=== PATIENT | female | born 1965 | race Caucasian/White ===

== ENCOUNTER → 2024-08-19 | Outpatient (CLI) | payer BC, SELFPAY ==
--- NOTE | 2024-08-19 15:30 | XR_ITS ---
Examination: Retroperitoneal ultrasound, complete Technique: Multiple high resolution grayscale images of the retroperitoneum obtained, including kidneys and bladder. Exam date and time:August 19, 2024 1550 hours INDICATIONS: Mild left hydronephrosis on renal sonogram April 12, 2024, history kidney stones on CT abdomen April 12, 2024 FINDINGS: Right kidney 10.0 x 5.0 x 5.6 cm renal cortex 1.2 cm Left kidney 10.0 x 5.1 x 4.2 cm cortex 1.3 cm Mild bilateral hydronephrosis Mild bilateral renal parenchymal scar formation No renal calculi No bladder mass or bladder calculi Bladder prevoid volume 461 cc postvoid volume 49 cc IMPRESSION: Bilateral renal cortical thinning Mild bilateral hydronephrosis Mild bilateral renal parenchymal scar formation
== END | disposition home or self-care (01) ==
LOC: CDIM 15:31
PROVIDERS: PCP Family Medicine; Referring Provider Internal Medicine; Visit Provider Internal Medicine
DX: N13.30 Unspecified hydronephrosis (principal); N28.89 Other specified disorders of kidney and ureter
CPT/HCPCS: 76770

== ENCOUNTER → 2024-10-02 | Outpatient (CLI) | payer BC, SELFPAY ==
[2024-10-02 18:11] LABS: Basophils # (Auto) 0.1 Thou/mm3 (0.0-0.2); Basophils % (Auto) 1 % (0-2.5); Eosinophils # (Auto) 0.2 Thou/mm3 (0.0-0.5); Eosinophils % (Auto) 3 % (0-10); Hematocrit 33.8 % (36.0-46.0); Hemoglobin 11.2 g/dL (12.0-16.0); Immature Granulocytes % (Auto) 0 % (0-0); Immature Granulocytes Auto 0.02 Thou/mm3 (0.00-0.00); Lymphocytes # (Auto) 1.7 Thou/mm3 (1.0-4.8); Lymphocytes % (Auto) 32 % (10-50); Mean Corpuscular HGB Conc 33.1 g/dl (31.0-37.0); Mean Corpuscular Hemoglobin 28.4 pg (25.0-35.0); Mean Corpuscular Volume 86 fL (80-100); Monocytes # (Auto) 0.5 Thou/mm3 (0.0-0.8); Monocytes % (Auto) 8 % (0-12); Neutrophils % (Auto) 56 % (37-80); Nucleated Red Blood Cell % 0 /100 WBC (0); Platelet Count 204 Thou/mm3 (140-440); RDW Standard Deviation 41.1 fL (36.4-46.3); Red Blood Count 3.94 Miln/mm3 (4.00-5.20); White Blood Count 5.5 Thou/mm3 (3.6-11.0)
[2024-10-02 18:19] LABS: Glucose Estimated Average 100 mg/dL (80-131); Hemoglobin A1C 5.1 % Hgb (4.8-6.0)
[2024-10-02 18:24] LABS: Follicle Stimulating Hormone 91.98 mIU/mL (See Note)
[2024-10-02 18:29] LABS: Alanine Aminotransferase 23 U/L (10-49); Albumin, Serum 4.1 gm/dL (3.5-5.0); Albumin/Globulin Ratio 1.6 (1.2-2.2); Alkaline Phosphatase 86 U/L (46-116); Anion Gap 9 (7-16); Aspartate Amino Transferase 14 U/L (0-34); BUN/Creatinine Ratio 18 Ratio (12-20); Beta HCG,Quantitative 4 mIU/mL (<5.0); Bilirubin,Total 0.4 mg/dL (0.3-1.2); Blood Urea Nitrogen 18 mg/dL (9-23); Calcium 9.3 mg/dL (8.3-10.6); Calcium (Corrected) 9.3 mg/dL (8.5-10.1); Carbon Dioxide 25.9 mMol/L (20.0-31.0); Chloride 105 mMol/L (98-107); Free T4 (Free Thyroxine) 0.98 ng/dL (0.89-1.76); Globulin 2.5 gm/dL (2.3-3.5); Glucose 80 mg/dL (74-106); Osmolality,Calculated 280 (275-295); Potassium 3.7 mMol/L (3.4-5.1); Sodium 140 mMol/L (136-145); Thyroid Stimulating Hormone 0.65 uIU/mL (0.55-4.78); Total Protein 6.6 gm/dL (5.7-8.2); eGFR > 60 See Note
[2024-10-15 06:39] LABS: 17-Hydroxyprogesterone* 36 ng/dL; DHEA Sulfate* 45 mcg/dL (8-188); Estrogen, Total, Serum* 175 pg/mL; Luteinizing Hormone* 64.3 mIU/mL; Progesterone,LC/MS* 0.2 ng/mL; Prolactin* 7.6 ng/mL; Testosterone, Free,Dialysis 1.5 pg/mL (0.1-6.4); Testosterone, Total, Dialysis 15 ng/dL (2-45)
== END | disposition home or self-care (01) ==
PROVIDERS: PCP Physician Assistant Medical; Referring Provider Physician Assistant Medical; Visit Provider Physician Assistant Medical
DX: N93.0 Postcoital and contact bleeding (principal); N95.1 Menopausal and female climacteric states
CPT/HCPCS: 36415; 80053; 82627; 82672; 83001; 83002; 83036; 83498; 84144; 84146; 84402; 84403; 84439; 84443; 84702; 85025

== ENCOUNTER → 2024-10-04 | Outpatient (CLI) | payer BC, SELFPAY ==
[2024-10-04 17:37] LABS: Collection Type, Urine Clean Catch; WBC,Urine 0 /hpf (0-5)
[2024-10-04 17:50] LABS: Basophils # (Auto) 0.1 Thou/mm3 (0.0-0.2); Basophils % (Auto) 1 % (0-2.5); Eosinophils # (Auto) 0.2 Thou/mm3 (0.0-0.5); Eosinophils % (Auto) 3 % (0-10); Hematocrit 34.1 % (36.0-46.0); Hemoglobin 11.4 g/dL (12.0-16.0); Immature Granulocytes % (Auto) 0 % (0-0); Immature Granulocytes Auto 0.01 Thou/mm3 (0.00-0.00); Lymphocytes # (Auto) 1.7 Thou/mm3 (1.0-4.8); Lymphocytes % (Auto) 29 % (10-50); Mean Corpuscular HGB Conc 33.4 g/dl (31.0-37.0); Mean Corpuscular Hemoglobin 28.6 pg (25.0-35.0); Mean Corpuscular Volume 86 fL (80-100); Monocytes # (Auto) 0.5 Thou/mm3 (0.0-0.8); Monocytes % (Auto) 8 % (0-12); Neutrophils # (Auto) 3.6 Thou/mm3 (1.8-7.7); Neutrophils % (Auto) 59 % (37-80); Nucleated Red Blood Cell % 0 /100 WBC (0); Platelet Count 210 Thou/mm3 (140-440); RDW Standard Deviation 41.2 fL (36.4-46.3); Red Blood Count 3.99 Miln/mm3 (4.00-5.20)
[2024-10-04 17:59] LABS: Bilirubin,Urine Negative (Negative); Blood,Urine Negative (Negative); Clarity,Urine Clear (Clear/Hazy); Color,Urine Colorless (Lt Yel-Yel); Glucose, Urine Negative (Negative); Ketones,Urine Negative (Negative); Leukocyte Esterase,Urine Negative (Negative); Nitrite,Urine Negative (Negative); Protein,Urine Negative (Neg - Trace); RBC,Urine < 1 /hpf (0-3); Specific Gravity,Urine 1.009 (1.001-1.035); Squamous Epithelial Cell,Urine 1 /hpf (0-5); Urobilinogen,Urine Negative mg/dL (0.0-1.0)
[2024-10-04 18:07] LABS: Creatinine,Random Urine 32 mg/dL (30-125); Protein Total, Random Urine < 6 mg/dL (1-14)
[2024-10-04 18:16] LABS: Anion Gap 9 (7-16); BUN/Creatinine Ratio 20 Ratio (12-20); Blood Urea Nitrogen 22 mg/dL (9-23); Calcium 9.2 mg/dL (8.3-10.6); Calcium (Corrected) 9.2 mg/dL (8.5-10.1); Carbon Dioxide 26.8 mMol/L (20.0-31.0); Chloride 105 mMol/L (98-107); Creatinine (Component) 1.1 mg/dL (0.6-1.3); Glucose 85 mg/dL (74-106); Osmolality,Calculated 283 (275-295); Phosphorous 3.5 mg/dL (2.4-5.1); Potassium 3.9 mMol/L (3.4-5.1); Sodium 141 mMol/L (136-145); eGFR 59 See Note
[2024-10-04 18:20] LABS: Vitamin D 25 Hydroxy Total 28.9 ng/mL (7.3-40.2)
== END | disposition home or self-care (01) ==
LOC: COPL 17:10
PROVIDERS: PCP Registered Nurse; Referring Provider Internal Medicine; Visit Provider Internal Medicine
DX: I12.9 Hypertensive chronic kidney disease with stage 1 through stage 4 chronic kidney disease, or unspecified chronic kidney disease (principal); N18.31 Chronic kidney disease, stage 3a; D68.61 Antiphospholipid syndrome; K51.90 Ulcerative colitis, unspecified, without complications
CPT/HCPCS: 36415; 80069; 81001; 82306; 82570; 84156; 85025

== ENCOUNTER → 2024-12-04 | Outpatient (CLI) | payer BC, SELFPAY ==
[2024-12-04 12:39] LABS: Misc Send Out* See Sep Rpt
[2024-12-04 13:01] LABS: Collection Type, Urine Clean Catch
[2024-12-04 13:31] LABS: Basophils # (Auto) 0.1 Thou/mm3 (0.0-0.2); Basophils % (Auto) 1 % (0-2.5); Eosinophils # (Auto) 0.2 Thou/mm3 (0.0-0.5); Eosinophils % (Auto) 4 % (0-10); Hematocrit 35.8 % (36.0-46.0); Hemoglobin 12.1 g/dL (12.0-16.0); Immature Granulocytes % (Auto) 0 % (0-0); Immature Granulocytes Auto 0.01 Thou/mm3 (0.00-0.00); Lymphocytes # (Auto) 1.3 Thou/mm3 (1.0-4.8); Lymphocytes % (Auto) 23 % (10-50); Mean Corpuscular HGB Conc 33.8 g/dl (31.0-37.0); Mean Corpuscular Hemoglobin 29.3 pg (25.0-35.0); Mean Corpuscular Volume 87 fL (80-100); Monocytes # (Auto) 0.6 Thou/mm3 (0.0-0.8); Monocytes % (Auto) 11 % (0-12); Neutrophils # (Auto) 3.4 Thou/mm3 (1.8-7.7); Neutrophils % (Auto) 62 % (37-80); Nucleated Red Blood Cell % 0 /100 WBC (0); Platelet Count 213 Thou/mm3 (140-440); RDW Standard Deviation 42.2 fL (36.4-46.3); Red Blood Count 4.13 Miln/mm3 (4.00-5.20); White Blood Count 5.5 Thou/mm3 (3.6-11.0)
[2024-12-04 13:47] LABS: Bacteria,Urine Rare; Bilirubin,Urine Negative (Negative); Blood,Urine Negative (Negative); Clarity,Urine Clear (Clear/Hazy); Color,Urine Yellow (Lt Yel-Yel); Glucose, Urine Negative (Negative); Ketones,Urine Negative (Negative); Leukocyte Esterase,Urine Negative (Negative); Nitrite,Urine Negative (Negative); Protein,Urine Trace (Neg - Trace); RBC,Urine 1 /hpf (0-3); Specific Gravity,Urine 1.023 (1.001-1.035); Squamous Epithelial Cell,Urine 5 /hpf (0-5); Urobilinogen,Urine Negative mg/dL (0.0-1.0); WBC,Urine 2 /hpf (0-5)
[2024-12-04 13:51] LABS: Alanine Aminotransferase 19 U/L (10-49); Albumin, Serum 4.2 gm/dL (3.5-5.0); Albumin/Globulin Ratio 1.5 (1.2-2.2); Alkaline Phosphatase 92 U/L (46-116); Anion Gap 8 (7-16); Aspartate Amino Transferase 17 U/L (0-34); BUN/Creatinine Ratio 23 Ratio (12-20); Bilirubin,Total 0.6 mg/dL (0.3-1.2); Blood Urea Nitrogen 25 mg/dL (9-23); C-Reactive Protein < 0.5 mg/dL (0.0-0.9); Calcium 8.9 mg/dL (8.3-10.6); Calcium (Corrected) 8.9 mg/dL (8.5-10.1); Carbon Dioxide 24.4 mMol/L (20.0-31.0); Chloride 109 mMol/L (98-107); Creatinine (Component) 1.1 mg/dL (0.6-1.3); Globulin 2.8 gm/dL (2.3-3.5); Glucose 84 mg/dL (74-106); Osmolality,Calculated 284 (275-295); Potassium 3.6 mMol/L (3.4-5.1); Sodium 141 mMol/L (136-145); eGFR 59 See Note
[2024-12-04 14:10] LABS: Sed Rate (ESR) 18 mm/hr (0-30)
[2024-12-11 07:06] LABS: PTT-LA Screen 36 seconds (< OR = 40); dRVVT Screen 35 seconds (< OR = 45)
[2024-12-11 15:34] LABS: Alpha-1-Globulin 0.3 g/dL (0.2-0.3); Alpha-2-Globulin 0.6 g/dL (0.5-0.9); Beta-1-Globulin 0.4 g/dL (0.4-0.6); Beta-2-globulin 0.3 g/dL (0.2-0.5); Cardiolipin Ab (IgA) <2.0 APL-U/mL; Cardiolipin Ab (IgG) <2.0 GPL-U/mL; Gamma Globulin 1.3 g/dL (0.8-1.7)
[2024-12-12 06:35] LABS: B2-Glycoprotein I Ab IgA <2.0 U/mL; B2-Glycoprotein I Ab IgG <2.0 U/mL; B2-Glycoprotein I Ab IgM 2.1 U/mL; Cardiolipin Ab (IgM) 2.6 MPL-U/mL; Complement Component C3* 94 mg/dL (83-193); Complement Component C4c* 24 mg/dL (15-57); DNA (ds) Antibody* 1 IU/mL; Protein, total, serum 6.9 g/dL (6.1-8.1)
== END | disposition home or self-care (01) ==
LOC: COPL 12:09
PROVIDERS: PCP Family Medicine; Referring Provider Internal Medicine; Visit Provider Internal Medicine
DX: E87.6 Hypokalemia (principal); M79.10 Myalgia, unspecified site; I12.9 Hypertensive chronic kidney disease with stage 1 through stage 4 chronic kidney disease, or unspecified chronic kidney disease; N18.31 Chronic kidney disease, stage 3a; N96 Recurrent pregnancy loss; R76.0 Raised antibody titer; K51.00 Ulcerative (chronic) pancolitis without complications
CPT/HCPCS: 36415; 80053; 81001; 84155; 84165; 85025; 85613; 85652; 85730; 86140; 86146; 86147; 86160; 86225; 86880; 87077; 87086; 87186

== ENCOUNTER → 2024-12-19 | Outpatient (BNVA) | payer BC, SELFPAY | END | disposition home or self-care (01) | PROVIDERS: Visit Provider Urology | DX: R31.9 Hematuria, unspecified (principal); R10.2 Pelvic and perineal pain; R33.9 Retention of urine, unspecified; R39.198 Other difficulties with micturition; I12.9 Hypertensive chronic kidney disease with stage 1 through stage 4 chronic kidney disease, or unspecified chronic kidney disease; N18.2 Chronic kidney disease, stage 2 (mild); E66.9 Obesity, unspecified; Z68.29 Body mass index [BMI] 29.0-29.9, adult | CPT/HCPCS: 81003; 99212; G0463 ==

== ENCOUNTER 2025-01-08 08:05 | Day surgery (SDC) | payer BC, SELFPAY ==
--- NOTE | 2025-01-07 12:40 | EKG_ITS ---
[facility] Test Date: 2025-01-07 Pat Name: CALVIN BUNCH Department: Room: - Gender: Female Adhesive Bonding Machine Operator: MARCO : 1965 Requested By: Anthony Reed Order Number: [id number] Reading MD: Anthony Reed Measurements Intervals [place] Rate: 78 P: 79 NM: 211 QRS: 3 QRSD: 108 T: 75 QT: 365 QTc: 418 Interpretive Statements SINUS RHYTHM WITH FIRST DEGREE AV BLOCK INCOMPLETE RIGHT BUNDLE BRANCH BLOCK [90+ ms QRS DURATION, TERMINAL R IN V1/V2, 40+ ms S IN I/aVL/V4/V5/V6] No previous ECG available for comparison /store/S0/[id number]
[2025-01-07 13:06] VITALS: BMI 28.1
[2025-01-07 14:08] LABS: Alanine Aminotransferase 21 U/L (10-49); Albumin, Serum 4.2 gm/dL (3.5-5.0); Albumin/Globulin Ratio 1.8 (1.2-2.2); Alkaline Phosphatase 102 U/L (46-116); Anion Gap 9 (7-16); Aspartate Amino Transferase 20 U/L (0-34); BUN/Creatinine Ratio 21 Ratio (12-20); Bilirubin,Total 0.3 mg/dL (0.3-1.2); Blood Urea Nitrogen 23 mg/dL (9-23); Calcium 8.7 mg/dL (8.3-10.6); Calcium (Corrected) 8.7 mg/dL (8.5-10.1); Carbon Dioxide 25.9 mMol/L (20.0-31.0); Chloride 109 mMol/L (98-107); Creatinine (Component) 1.1 mg/dL (0.6-1.3); Estimated Creatinine Clearance 57.8 mL/min (>60); Globulin 2.4 gm/dL (2.3-3.5); Glucose 123 mg/dL (74-106); Osmolality,Calculated 291 (275-295); Potassium 3.4 mMol/L (3.4-5.1); Sodium 144 mMol/L (136-145); Total Protein 6.6 gm/dL (5.7-8.2); eGFR 59 See Note
[2025-01-08] VITALS (9 sets, daily range): BP systolic 128–175; BP diastolic 75–93; PULSE 15–76; RESP 12–16; TEMP 36.6–36.8; O2SAT 95–100; BMI 28.8
[2025-01-08] MEDS: RINGERS LACTATED 1000 ML 1,000 ML 20 ML IV (09:53)
[2025-01-08] MEDS: SCOPOLAMINE 1 MG TDSY TOP (09:53)
--- NOTE | 2025-01-08 10:43 | PD.SUROPNT ---
Date of Procedure 01/08/25 Pre Op Diagnosis Chronic pelvic pain syndrome, difficulty in urinating, Post Op Diagnosis Same plus severe urethral stenosis, interstitial cystitis, Procedure Cystoscopic examination, urethral dilation [place] dilation for diagnostic and therapeutic purposes, biopsy and fulguration Findings Severe urethral stenosis, interstitial cystitis Procedure Description Indication for procedure this is a 59-year-old female she is seen in urology office she has chronic pelvic pain syndrome with difficulty in urinating she was recommended above procedure procedure and complications were discussed with the patient in great detail informed consent is obtained Patient was brought to the operating room in a satisfactory condition after appropriate premedication she was appropriately identified by surgeon and operating room staff, site scope and indications of the procedure were reconfirmed with the patient general anesthesia was given uneventfully patient was positioned in dorsolithotomy position parts were prepped and draped in the usual sterile fashion The patient received 160 mg Gentamicin IM pre-op prophylaxis. .. Local anesthetic was placed in the urethra. Cystoscopy was then performed. The urethra had no intrinsic lesions. Examination of the bladder revealed no evidence of cancerous lesions, papillary or polyp type, lesions or stones. Both ureters were putting out clear urine. Bladder was filled with the 400 cc of water drained cystoscopy was done again there was satellite hemorrhages indicating interstitial cystitis biopsy was obtained fulguration was carried out rule out carcinoma in situ, the urethra had mid urethral stenosis and the urethra was dilated up to 30Fr with dilators. The bladder was completely drained and the scope was removed. The patient tolerated the procedure well. Post-op instructions were given. The patient is to call the office should any problems occur. Follow-up appointment in urology office in 2 weeks Anesthesia GETA Pathology / specimen Other (Bladder biopsy) Estimated Blood Loss 0.5 Condition Stable Disposition PACU Surgeon Sayda Prater MD Surgical Staff Operation Date: 01/08/25 10:00 <No data on this case meets the specified criteria>
--- NOTE | 2025-01-08 10:48 | SUR.PHASEI ---
pt received from OR in recovery bay 2. pt obtunded, breathing unlabored on oxymask 8l, oral airway in place. v/s stable. report received from Santo HERNANDEZ and Ramin PARRY.
--- NOTE | 2025-01-08 11:11 | SUR.PHASEI ---
pt able to tolerate oral fluids without difficulty swallowing or nausea/vomiting.
--- NOTE | 2025-01-08 12:40 | SUR.PHASEII ---
pt awake and alert, breathing unlabored on room air. v/s stable. pt able to ambulate to wheelchair with steady gait. d/c instructions given with Rishi in room, all questions answered. pt d/c via wheelchair with all belongings.
== END 2025-01-08 12:40 | disposition home or self-care (01) ==
PROVIDERS: Anesthesiology; PCP Family Medicine; Referring Provider Urology; Visit Provider Urology
PROC: 0T7B8ZZ Dilation of Bladder, Via Natural or Artificial Opening Endoscopic (ICD-10-PCS; CPT 52260; principal; 2025-01-08 09:45)
DX: N30.10 Interstitial cystitis (chronic) without hematuria (principal); G89.4 Chronic pain syndrome; Z01.810 Encounter for preprocedural cardiovascular examination
CPT/HCPCS: 52260; 36415; 80053; 93005; A4217; A4649; J1100; J1580; J2250; J2371; J2405; J2704; J2765; J3010; J3490; J7120; A9270

== ENCOUNTER 2025-01-13 07:03 | Emergency (ER) | payer BC, SELFPAY ==
[2025-01-13 07:06] VITALS: BMI 27.9
[2025-01-13 07:12] VITALS: BP 153/86; PULSE 90; RESP 16; TEMP 36.6; O2SAT 97; BMI 27.9
--- NOTE | 2025-01-13 07:17 | XR_ITS ---
Examination: CT abdomen and pelvis without contrast. Coronal 3-D reconstructions. Sagittal 2-D reconstructions. Date and time of exam:January 13, 2025 0737 hours INDICATIONS: Status post cystoscopy 4 days ago with pelvic pain and bleeding CTDI: vol (mGy): 8.5 DLP: (mGycm): 430 Technique: Axial images of the abdomen have been obtained, 3 mm slice thickness Intravenous contrast material has not been administered. Low dose protocols were performed. One or more of the following dose reduction techniques were used; automated exposure control, adjustment of the mA and/or KV according to patient size, use of iterative reconstruction technique. Findings: Or splenic lesions No gallstones No pancreatic mass Minimal bilateral hydronephrosis No renal or ureteral calculi No periappendiceal inflammatory change No pelvic mass Minimal thickening of the urinary bladder wall Intact osseous structures IMPRESSION: Minimal bilateral hydronephrosis, consider urinary tract infection No ureteral calculi Minimal thickening of the urinary bladder wall, consider cystitis
[2025-01-13] MEDS: HYDROcodone/APAP 5/325 TABLET 1 TAB PO (07:50)
[2025-01-13 08:13] LABS: Collection Type, Urine Clean Catch; Squamous Epithelial Cell,Urine 0 /hpf (0-5); WBC,Urine 0 /hpf (0-5)
[2025-01-13 08:18] LABS: Basophils # (Auto) 0.1 Thou/mm3 (0.0-0.2); Basophils % (Auto) 1 % (0-2.5); Eosinophils # (Auto) 0.3 Thou/mm3 (0.0-0.5); Eosinophils % (Auto) 6 % (0-10); Hematocrit 36.6 % (36.0-46.0); Hemoglobin 12.5 g/dL (12.0-16.0); Immature Granulocytes % (Auto) 0 % (0-0); Immature Granulocytes Auto 0.01 Thou/mm3 (0.00-0.00); Lymphocytes # (Auto) 1.7 Thou/mm3 (1.0-4.8); Lymphocytes % (Auto) 31 % (10-50); Mean Corpuscular HGB Conc 34.2 g/dl (31.0-37.0); Mean Corpuscular Hemoglobin 29.1 pg (25.0-35.0); Mean Corpuscular Volume 85 fL (80-100); Monocytes # (Auto) 0.6 Thou/mm3 (0.0-0.8); Monocytes % (Auto) 11 % (0-12); Neutrophils # (Auto) 2.7 Thou/mm3 (1.8-7.7); Neutrophils % (Auto) 51 % (37-80); Nucleated Red Blood Cell % 0 /100 WBC (0); Platelet Count 191 Thou/mm3 (140-440); RDW Standard Deviation 42.2 fL (36.4-46.3); White Blood Count 5.3 Thou/mm3 (3.6-11.0)
[2025-01-13 08:27] LABS: Bilirubin,Urine Negative (Negative); Blood,Urine 3+ (Negative); Color,Urine Dark-Brown (Lt Yel-Yel); Culture Indicated,Urine Not Indicated; Glucose, Urine Negative (Negative); Ketones,Urine Negative (Negative); Nitrite,Urine Negative (Negative); Protein,Urine 1+ (Neg - Trace); RBC,Urine 243696 /hpf (0-3); Specific Gravity,Urine 1.022 (1.001-1.035); Urobilinogen,Urine Negative mg/dL (0.0-1.0)
[2025-01-13 08:33] LABS: Alanine Aminotransferase 19 U/L (10-49); Albumin, Serum 4.2 gm/dL (3.5-5.0); Albumin/Globulin Ratio 1.6 (1.2-2.2); Alkaline Phosphatase 91 U/L (46-116); Anion Gap 8 (7-16); Aspartate Amino Transferase 16 U/L (0-34); BUN/Creatinine Ratio 17 Ratio (12-20); Bilirubin,Total 0.5 mg/dL (0.3-1.2); Blood Urea Nitrogen 20 mg/dL (9-23); Calcium 8.8 mg/dL (8.3-10.6); Calcium (Corrected) 8.8 mg/dL (8.5-10.1); Carbon Dioxide 30.3 mMol/L (20.0-31.0); Chloride 105 mMol/L (98-107); Creatinine (Component) 1.2 mg/dL (0.6-1.3); Estimated Creatinine Clearance 52.8 mL/min (>60); Globulin 2.6 gm/dL (2.3-3.5); Glucose 88 mg/dL (74-106); Lipase 44 U/L (12-53); Osmolality,Calculated 286 (275-295); Potassium 3.6 mMol/L (3.4-5.1); Sodium 143 mMol/L (136-145); Total Protein 6.8 gm/dL (5.7-8.2); eGFR 53 See Note
[2025-01-13 08:49] LABS: Clarity,Urine Bloody (Clear/Hazy); Leukocyte Esterase,Urine Negative (Negative)
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
[2025-01-13] MEDS: KETOROLAC INJ 30 MG/ML VIAL IM (09:52)
== END 2025-01-13 09:57 | disposition home or self-care (01) ==
PROVIDERS: Nurse Practitioner Primary Care; Emergency Provider Emergency Medicine; PCP Family Medicine
DX: R31.9 Hematuria, unspecified (principal); R10.2 Pelvic and perineal pain
CPT/HCPCS: 36415; 74176; 80053; 81001; 83690; 85025; 96372; 99284; J1885; A9270

== ENCOUNTER → 2025-01-20 | Outpatient (CLI) | payer BC, SELFPAY ==
--- NOTE | 2025-01-20 11:02 | EKG_ITS ---
[facility] Test Date: 2025-01-20 Pat Name: CALVIN BUNCH Department: Room: - Gender: Female Residential Case Manager: MARCO : 1965 Requested By: . Other Order Number: [id number] Reading MD: . Other Measurements Intervals [place] Rate: 78 P: 76 DE: 191 QRS: 25 QRSD: 105 T: 78 QT: 368 QTc: 420 Interpretive Statements SINUS RHYTHM INCOMPLETE RIGHT BUNDLE BRANCH BLOCK [90+ ms QRS DURATION, TERMINAL R IN V1/V2, 40+ ms S IN I/aVL/V4/V5/V6] SEPTAL MYOCARDIAL INFARCTION , PROBABLY OLD [40+ ms Q WAVE IN V1/V2] Compared to ECG 01/07/2025 13:33:48 Myocardial infarct finding now present First degree AV block no longer present /store/S0/[id number]/[id number].pdf
[2025-01-20 11:33] LABS: Alanine Aminotransferase 22 U/L (10-49); Albumin, Serum 4.2 gm/dL (3.5-5.0); Albumin/Globulin Ratio 1.6 (1.2-2.2); Alkaline Phosphatase 105 U/L (46-116); Anion Gap 10 (7-16); BUN/Creatinine Ratio 14 Ratio (12-20); Bilirubin,Total 0.4 mg/dL (0.3-1.2); Blood Urea Nitrogen 27 mg/dL (9-23); Calcium 9.2 mg/dL (8.3-10.6); Calcium (Corrected) 9.2 mg/dL (8.5-10.1); Carbon Dioxide 23.2 mMol/L (20.0-31.0); Chloride 106 mMol/L (98-107); Creatinine (Component) 1.9 mg/dL (0.6-1.3); Globulin 2.6 gm/dL (2.3-3.5); Glucose 65 mg/dL (74-106); Osmolality,Calculated 280 (275-295); Potassium 3.8 mMol/L (3.4-5.1); Sodium 139 mMol/L (136-145); Total Protein 6.8 gm/dL (5.7-8.2); eGFR 30 See Note
== END | disposition home or self-care (01) ==
PROVIDERS: PCP Family Medicine
DX: Z01.818 Encounter for other preprocedural examination (principal)
CPT/HCPCS: 36415; 80053; 93005

== ENCOUNTER → 2025-01-24 | Outpatient (BNVA) | payer BC, SELFPAY | END | disposition home or self-care (01) | PROVIDERS: PCP Family Medicine; Referring Provider Family Medicine; Visit Provider Urology | DX: G89.4 Chronic pain syndrome (principal); R10.2 Pelvic and perineal pain; I12.9 Hypertensive chronic kidney disease with stage 1 through stage 4 chronic kidney disease, or unspecified chronic kidney disease; Z87.440 Personal history of urinary (tract) infections; N18.30 Chronic kidney disease, stage 3 unspecified | CPT/HCPCS: 81003; 99212; G0463 ==

== ENCOUNTER → 2025-02-28 | Outpatient (CLI) | payer BC, SELFPAY ==
--- NOTE | 2025-02-28 15:57 | XR_ITS ---
Examination: Bilateral hands, 3 views. Technique: AP, Oblique, Lateral each hand total 6 views INDICATIONS: Hand pain 3 years Date and time of exam: February 28, 2025 1602 hours Findings: Mild juxta-articular bone demineralization Bilateral moderate osteoarthritis first carpal metacarpal joints No erosive or other significant arthritic change. No acute fractures No foreign bodies IMPRESSION: Bilateral moderate osteoarthritis first carpometacarpal joints. No erosive or other significant arthritic change
--- NOTE | 2025-02-28 15:57 | XR_ITS ---
Examination: Soft tissue lateral neck single view TECHNIQUE: Lateral soft tissue neck single view Date and time: February 28, 2025 1602 hours INDICATIONS: Sudden onset neck pain beginning 3 weeks ago. FINDINGS: Minimal retrolisthesis C5 on C4 1 mm Moderate degenerative disc disease C5-C6 Mild cervical spondylosis. No cervical fracture Intact odontoid IMPRESSION: Moderate degenerative disc disease C5-C6
[2025-02-28 17:34] LABS: Basophils # (Auto) 0.1 Thou/mm3 (0.0-0.2); Basophils % (Auto) 1 % (0-2.5); Eosinophils # (Auto) 0.3 Thou/mm3 (0.0-0.5); Eosinophils % (Auto) 4 % (0-10); Hematocrit 38.5 % (36.0-46.0); Hemoglobin 12.3 g/dL (12.0-16.0); Immature Granulocytes Auto 0.02 Thou/mm3 (0.00-0.00); Lymphocytes # (Auto) 2.4 Thou/mm3 (1.0-4.8); Lymphocytes % (Auto) 32 % (10-50); Mean Corpuscular HGB Conc 31.9 g/dl (31.0-37.0); Mean Corpuscular Hemoglobin 28.8 pg (25.0-35.0); Mean Corpuscular Volume 90 fL (80-100); Monocytes # (Auto) 0.9 Thou/mm3 (0.0-0.8); Monocytes % (Auto) 12 % (0-12); Neutrophils # (Auto) 3.9 Thou/mm3 (1.8-7.7); Neutrophils % (Auto) 51 % (37-80); Nucleated Red Blood Cell # 0.00 Thou/mm3 (0.00-0.00); Nucleated Red Blood Cell % 0 /100 WBC (0); Platelet Count 209 Thou/mm3 (140-440); RDW Standard Deviation 45.0 fL (36.4-46.3); Red Blood Count 4.27 Miln/mm3 (4.00-5.20); White Blood Count 7.7 Thou/mm3 (3.6-11.0)
[2025-02-28 17:47] LABS: Alanine Aminotransferase 28 U/L (10-49); Albumin, Serum 4.4 gm/dL (3.5-5.0); Anion Gap 10 (7-16); Aspartate Amino Transferase 27 U/L (0-34); BUN/Creatinine Ratio 25 Ratio (12-20); Bilirubin,Total 0.3 mg/dL (0.3-1.2); Blood Urea Nitrogen 30 mg/dL (9-23); Calcium 9.0 mg/dL (8.3-10.6); Calcium (Corrected) 9.0 mg/dL (8.5-10.1); Carbon Dioxide 22.4 mMol/L (20.0-31.0); Chloride 109 mMol/L (98-107); Creatinine (Component) 1.2 mg/dL (0.6-1.3); Glucose 79 mg/dL (74-106); Osmolality,Calculated 286 (275-295); Potassium 4.0 mMol/L (3.4-5.1); Sodium 141 mMol/L (136-145); Total Protein 7.3 gm/dL (5.7-8.2); eGFR 53 See Note
[2025-02-28 17:48] LABS: Albumin/Globulin Ratio 1.5 (1.2-2.2); Alkaline Phosphatase 159 U/L (46-116); C-Reactive Protein < 0.5 mg/dL (0.0-0.9); Globulin 2.9 gm/dL (2.3-3.5)
[2025-02-28 18:22] LABS: Sed Rate (ESR) 24 mm/hr (0-30)
== END | disposition home or self-care (01) ==
LOC: CDIM 15:48 → COPL 16:20
DX: M50.322 Other cervical disc degeneration at C5-C6 level (principal); M18.0 Bilateral primary osteoarthritis of first carpometacarpal joints; E87.6 Hypokalemia; K51.00 Ulcerative (chronic) pancolitis without complications; M79.10 Myalgia, unspecified site; I12.9 Hypertensive chronic kidney disease with stage 1 through stage 4 chronic kidney disease, or unspecified chronic kidney disease; N18.31 Chronic kidney disease, stage 3a; N30.00 Acute cystitis without hematuria; N96 Recurrent pregnancy loss; R76.0 Raised antibody titer
CPT/HCPCS: 36415; 70360; 73130; 80053; 85025; 85652; 86140

== ENCOUNTER → 2025-05-05 | Outpatient (BNVA) | payer BC, SELFPAY | END | disposition home or self-care (01) | PROVIDERS: PCP Family Medicine; Referring Provider Family Medicine; Visit Provider Urology | DX: G89.4 Chronic pain syndrome (principal); Z98.890 Other specified postprocedural states; I12.9 Hypertensive chronic kidney disease with stage 1 through stage 4 chronic kidney disease, or unspecified chronic kidney disease; N18.2 Chronic kidney disease, stage 2 (mild); F41.9 Anxiety disorder, unspecified; K51.90 Ulcerative colitis, unspecified, without complications; Z87.440 Personal history of urinary (tract) infections; E66.9 Obesity, unspecified; Z68.29 Body mass index [BMI] 29.0-29.9, adult | CPT/HCPCS: 81003; 99212; G0463 ==

== ENCOUNTER → 2025-05-06 | Outpatient (CLI) | payer BC, SELFPAY ==
[2025-05-06 11:33] LABS: Basophils # (Auto) 0.1 Thou/mm3 (0.0-0.2); Basophils % (Auto) 1 % (0-2.5); Eosinophils # (Auto) 0.2 Thou/mm3 (0.0-0.5); Eosinophils % (Auto) 5 % (0-10); Hematocrit 38.4 % (36.0-46.0); Hemoglobin 12.6 g/dL (12.0-16.0); Immature Granulocytes Auto 0.01 Thou/mm3 (0.00-0.00); Lymphocytes # (Auto) 1.9 Thou/mm3 (1.0-4.8); Lymphocytes % (Auto) 37 % (10-50); Mean Corpuscular HGB Conc 32.8 g/dl (31.0-37.0); Mean Corpuscular Hemoglobin 29.4 pg (25.0-35.0); Mean Corpuscular Volume 90 fL (80-100); Monocytes # (Auto) 0.5 Thou/mm3 (0.0-0.8); Monocytes % (Auto) 10 % (0-12); Neutrophils # (Auto) 2.4 Thou/mm3 (1.8-7.7); Neutrophils % (Auto) 47 % (37-80); Nucleated Red Blood Cell # 0.00 Thou/mm3 (0.00-0.00); Nucleated Red Blood Cell % 0 /100 WBC (0); Platelet Count 190 Thou/mm3 (140-440); RDW Standard Deviation 43.8 fL (36.4-46.3); Red Blood Count 4.29 Miln/mm3 (4.00-5.20); White Blood Count 5.1 Thou/mm3 (3.6-11.0)
[2025-05-06 11:46] LABS: Glucose Estimated Average 103 mg/dL (80-131); Hemoglobin A1C 5.2 % Hgb (4.8-6.0)
[2025-05-06 11:51] LABS: Parathyroid Hormone Intact 42.1 pg/ml (18.5-88.0)
[2025-05-06 11:57] LABS: Alanine Aminotransferase 26 U/L (10-49); Albumin, Serum 4.3 gm/dL (3.5-5.0); Albumin/Globulin Ratio 1.7 (1.2-2.2); Alkaline Phosphatase 123 U/L (46-116); Anion Gap 8 (7-16); Aspartate Amino Transferase 20 U/L (0-34); BUN/Creatinine Ratio 17 Ratio (12-20); Bilirubin,Total 0.4 mg/dL (0.3-1.2); Blood Urea Nitrogen 19 mg/dL (9-23); Calcium 9.9 mg/dL (8.3-10.6); Calcium (Corrected) 9.9 mg/dL (8.5-10.1); Carbon Dioxide 32.0 mMol/L (20.0-31.0); Cardiac Risk Estimate 2.1 RATIO (3.7-5.6); Chloride 102 mMol/L (98-107); Cholesterol 184 mg/dL (132-200); Creatinine (Component) 1.1 mg/dL (0.6-1.3); Globulin 2.6 gm/dL (2.3-3.5); Glucose 84 mg/dL (74-106); HDL Cholesterol 87 mg/dL (40-60); LDL Cholesterol,Calculated 83 mg/dL (0-130); Osmolality,Calculated 284 (275-295); Potassium 4.7 mMol/L (3.4-5.1); Sodium 142 mMol/L (136-145); Thyroid Stimulating Hormone 1.62 uIU/mL (0.55-4.78); Total Protein 6.9 gm/dL (5.7-8.2); Triglycerides 71 mg/dL (30-150); eGFR 59 See Note
[2025-05-06 11:58] LABS: Ferritin 25 ng/mL (7.3-270.7); Iron 85 mcg/dL (50-170); Percent Iron Saturation 22 % (20-55); Total Iron Binding Capacity 370 mcg/dL (250-425); Unsaturated Iron Binding 285 (225-295)
[2025-05-14 07:04] LABS: Vitamin D,1,25 (OH)2,Total 14 pg/mL (18-72); Vitamin D2, 1,25 (OH)2 <8 pg/mL; Vitamin D3, 1,25 (OH)2 14 pg/mL
[2025-05-14 07:09] LABS: Vitamin B1 (Thiamine)* 18 nmol/L (8-30); Vitamin B6, Plasma* 50.0 ng/mL (2.1-21.7)
== END | disposition home or self-care (01) ==
PROVIDERS: PCP Family Medicine; Referring Provider Student in an Organized Health Care Education/Training Program; Visit Provider Student in an Organized Health Care Education/Training Program
DX: K91.2 Postsurgical malabsorption, not elsewhere classified (principal); Z90.3 Acquired absence of stomach [part of]; K51.919 Ulcerative colitis, unspecified with unspecified complications; E87.6 Hypokalemia
CPT/HCPCS: 36415; 80053; 80061; 82652; 82728; 83036; 83540; 83550; 83970; 84207; 84425; 84443; 85025

== ENCOUNTER 2025-06-19 09:13 | Emergency (ER) | payer BC, SELFPAY ==
--- NOTE | 2025-06-19 09:19 | EKG_ITS ---
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
[2025-06-19 09:20] VITALS: PULSE 88; O2SAT 99; BMI 29.8
[2025-06-19 09:23] VITALS: BP 135/85; PULSE 70; RESP 17; TEMP 36.5; O2SAT 100
--- NOTE | 2025-06-19 09:25 | XR_ITS ---
CLINICAL INDICATION: Cough and chills TECHNIQUE: XR chest 1V portable Exam date and time: 06/19/2025 at 9:57 a.m. COMPARISON: 01/31/2023 chest radiograph FINDINGS: The cardiomediastinal silhouette is within normal limits. No airspace opacities suggestive of pneumonia. No mass detected. No pleural effusion or pneumothorax. No acute osseous abnormality detected. IMPRESSION: No radiographic evidence for acute cardiopulmonary abnormality. No significant interval change since the comparison study. - This report was generated utilizing speech recognition software. -
[2025-06-19 09:28] VITALS: PULSE 77
[2025-06-19] MEDS: SODIUM CHLORIDE 0.9% 1000 ML 1,000 ML 999 ML IV (09:37)
[2025-06-19 09:59] LABS: Basophils # (Auto) 0.1 Thou/mm3 (0.0-0.2); Basophils % (Auto) 2 % (0-2.5); Eosinophils # (Auto) 0.2 Thou/mm3 (0.0-0.5); Eosinophils % (Auto) 5 % (0-10); Hematocrit 33.2 % (36.0-46.0); Hemoglobin 10.7 g/dL (12.0-16.0); Immature Granulocytes Auto 0.01 Thou/mm3 (0.00-0.00); Lymphocytes # (Auto) 1.0 Thou/mm3 (1.0-4.8); Lymphocytes % (Auto) 26 % (10-50); Mean Corpuscular HGB Conc 32.2 g/dl (31.0-37.0); Mean Corpuscular Hemoglobin 28.4 pg (25.0-35.0); Mean Corpuscular Volume 88 fL (80-100); Monocytes # (Auto) 0.4 Thou/mm3 (0.0-0.8); Monocytes % (Auto) 11 % (0-12); Neutrophils # (Auto) 2.2 Thou/mm3 (1.8-7.7); Neutrophils % (Auto) 57 % (37-80); Nucleated Red Blood Cell # 0.00 Thou/mm3 (0.00-0.00); Nucleated Red Blood Cell % 0 /100 WBC (0); Platelet Count 135 Thou/mm3 (140-440); RDW Standard Deviation 41.7 fL (36.4-46.3); Red Blood Count 3.77 Miln/mm3 (4.00-5.20); White Blood Count 3.9 Thou/mm3 (3.6-11.0)
[2025-06-19 10:03] LABS: Alanine Aminotransferase 17 U/L (10-49); Albumin, Serum 4.4 gm/dL (3.5-5.0); Albumin/Globulin Ratio 2.1 (1.2-2.2); Alkaline Phosphatase 100 U/L (46-116); Anion Gap 7 (7-16); Aspartate Amino Transferase 19 U/L (0-34); BUN/Creatinine Ratio 19 Ratio (12-20); Bilirubin,Total 0.4 mg/dL (0.3-1.2); Blood Urea Nitrogen 23 mg/dL (9-23); Calcium 9.2 mg/dL (8.3-10.6); Calcium (Corrected) 9.2 mg/dL (8.5-10.1); Carbon Dioxide 27.9 mMol/L (20.0-31.0); Chloride 106 mMol/L (98-107); Creatinine (Component) 1.2 mg/dL (0.6-1.3); Estimated Creatinine Clearance 52.6 mL/min (>60); Globulin 2.1 gm/dL (2.3-3.5); Glucose 93 mg/dL (74-106); Osmolality,Calculated 284 (275-295); Potassium 4.1 mMol/L (3.4-5.1); Sodium 141 mMol/L (136-145); Total Protein 6.5 gm/dL (5.7-8.2); Troponin I < 0.002 ng/mL (0.0-0.045); eGFR 53 See Note
[2025-06-19 11:17] LABS: INR 1.0 (0.9-1.3); Partial Thromboplastin Time 23.7 Seconds (22.0-36.0); Prothrombin Time 11.0 Seconds (9.0-12.2)
[2025-06-19 11:30] LABS: Collection Type, Urine Clean Catch
--- NOTE | 2025-06-19 11:45 | PD.EDSYNC ---
ED Syncope RME/HPI General Chief Complaint: Syncope / Near Syncope Stated Complaint: NEAR SYNCOPE Time Seen by Provider: 06/19/25 09:24 Arrival date/time: 06/19/25 09:13 Limitations: no limitations RME / HPI RME / HPI narrative: 59 year old female with history of hypertension presents to the ED BIBA from home for near syncopal episode today. Patient states she was working when she suddenly ill and near syncope and able to sit herself down. Per medics, witnesses on scene stated they had an emergency kit and noted patient to be bradycardic. State the patient was given Atropine. On scene, the patient was awake and vital signs within normal limits. EMS administered no medications. No LOC. No headache, no visual changes, no focal weakness. No other associated symptoms or complaints. Related Data Home Medications ?Medication ?Instructions ?Recorded ?Confirmed albuterol sulfate 90 mcg/actuation 2 puff inhalation Q6HR PRN 08/09/16 05/05/25 aerosol inhaler (Proventil HFA) WHEEZING #0 inhalations duloxetine 60 mg capsule,delayed 60 mg PO QDAY 12/19/24 05/05/25 release (Cymbalta) valsartan 160 mg tablet 160 mg PO QDAY 12/19/24 05/05/25 ascorbic acid (vitamin C) 1,000 mg 1 g PO QDAY 01/07/25 05/05/25 tablet (C-1000) azelastine 137 mcg (0.1 %) nasal 1 spray intranasal BID 01/07/25 05/05/25 spray clonidine HCl 0.1 mg tablet 0.1 mg PO HS 01/07/25 05/05/25 cranberry 500 mg capsule 500 mg PO QDAY 01/07/25 05/05/25 duloxetine 30 mg capsule,delayed 30 mg PO DAILY 01/07/25 05/05/25 release fluticasone propionate 50 1 spray intranasal QDAY PRN 01/07/25 05/05/25 mcg/actuation nasal allergy symptoms spray,suspension (24 Hour Allergy Relief) loratadine 10 mg tablet 10 mg PO DAILY PRN allergy symptoms 01/07/25 05/05/25 potassium chloride 10 mEq 20 meq PO DAILY 01/07/25 05/05/25 capsule,extended release vitamin B complex-vitamin C-folic 1 tab PO QDAY 01/07/25 05/05/25 acid 0.8 mg tablet (Ana-Pradeep) estradiol 0.01% (0.1 mg/gram) 2 g vaginal DIRECTED 05/05/25 05/05/25 vaginal cream (Estrace) Allergies Allergy/AdvReac Type Severity Reaction Status Date / Time No Known Allergies Allergy Verified 05/05/25 14:58 Review of Systems Review of Systems Systems Reviewed: All systems reviewed, normal except as documented Past Medical History Past Medical History NEUROLOGIC: Positive Neurological Disorders and Head Trauma (fell off sip line) CARDIAC: Positive Cardiac Disorders and Hypertension RESPIRATORY: Positive Asthma, Bronchitis and Pneumonia GASTROINTESTINAL: Positive Gastrointestinal Disorders, Colitis and Ulcerative Colitis GENITOURINARY: Positive Renal Disease MUSCULOSKELETAL: Positive Musculoskeletal Disorders, Arthritis and Degenerative Disk Disease ENT: Positive Head Trauma (fell off sip line) PSYCHO/SOCIAL: Positive Depression and Anxiety OTHER HISTORY: Positive Hospitalization and Chicken Pox Family History FAMILY HISTORY: Positive Family Psychiatric Problems, Family Cardiac Disorders, Family Cancer and Family Surgery Surgical History SURGICAL: Positive Gastric Bypass Surgery; Negative Open Heart Surgery Social History SMOKING STATUS: Never smoker ED Exam General Limitations: Present no limitations General appearance: Present alert and in no apparent distress Head Head exam: Present atraumatic Eye Eye exam: Present normal appearance, PERRL and EOMI ENT ENT exam: Present normal exam, normal oropharynx and mucous membranes moist Neck Neck exam: Present normal inspection, full ROM and trachea midline Chest Chest inspection: Present normal inspection and symmetric chest wall rise Respiratory Respiratory exam: Present normal lung sounds bilaterally Cardiovascular Cardiovascular exam: Present regular rate, normal rhythm and normal heart sounds Abdominal Exam Abdominal exam: Present soft and normal bowel sounds Extremities Exam Extremities exam: Present normal inspection and full ROM Back Exam Back exam: Present normal inspection and full ROM Neurological Exam Neurological exam: Present alert, oriented X3 and CN II-XII intact Psychiatric Psychiatric exam: Present normal affect and normal mood Skin Skin exam: Present warm, dry, intact and normal color Course Quality Measures none Orders Category Date Time Status Log Hauler NOW Care 06/19/25 09:25 Completed Continuous Pulse Oximetry NOW Care 06/19/25 09:25 Completed EKG (ED ONLY) *Do not use* NOW Care 06/19/25 09:19 Completed Insert IV NOW Care 06/19/25 09:25 Completed EKG (ED Only) Stat Exams 06/19/25 09:19 Ordered XR chest 1V portable Stat Exams 06/19/25 09:25 Completed CBC Stat Lab 06/19/25 09:33 Completed Comprehensive Metabolic Panel Stat Lab 06/19/25 09:33 Completed Partial Thromboplastin Time Stat Lab 06/19/25 10:30 Completed Prothrombin Time with INR Stat Lab 06/19/25 10:30 Completed Troponin I Stat Lab 06/19/25 09:33 Completed Urinalysis Stat Lab 06/19/25 11:23 Completed Sodium Chloride 0.9% 1000 ml [Ns] 1,000 ml Med 06/19/25 09:25 Discontinued IV 999 mls/hr Vital Signs Vital signs: Vital Signs Temperature 97.7 F 06/19/25 09:23 Pulse Rate 70 06/19/25 09:23 Respiratory Rate 17 06/19/25 09:23 Blood Pressure 135/85 H 06/19/25 09:23 Pulse Oximetry (%) 100 06/19/25 09:23 Oxygen Delivery Method Room Air 06/19/25 09:23 Pulse ox is 100% on room air which is adequate. Syncope MDM Narrative MDM Narrative:: Rosa Amaya am scribing for and in the presence of Dr. Moon. Patient data External records reviewed:: [facility] previous records and EMS form Clinical information provided by:: patient and EMS Social determinants that could affect healthcare access:: none Patient has the following chronic illnesses:: Hypertension How is presenting disease/condition affected by chronic disease/condition?: uneffected by Evaluation data The following diagnostics were reviewed and interpreted by me:: lab results, radiology exam(s) and EKG tracing(s) (EKG @ 09:23 AM. Normal sinus rhythm, rate 76, no STEMI. ) Lab and/or radiology exams considered but not ordered:: None Interpretation Summary: Ordering Physician: Aneudy Moon MD Date of Service: 06/19/25 Procedure(s): XR chest 1V portable Accession Number(s): [id number] cc: Aneudy Moon MD; Mary Mobley MD; Nathaniel Muller CLINICAL INDICATION: Cough and chills TECHNIQUE: XR chest 1V portable Exam date and time: 06/19/2025 at 9:57 a.m. COMPARISON: 01/31/2023 chest radiograph FINDINGS: The cardiomediastinal silhouette is within normal limits. No airspace opacities suggestive of pneumonia. No mass detected. No pleural effusion or pneumothorax. No acute osseous abnormality detected. IMPRESSION: No radiographic evidence for acute cardiopulmonary abnormality. No significant interval change since the comparison study. - This report was generated utilizing speech recognition software. - Dictated By: Nathaniel Muller DO Signed By: <Electronically signed by Nathaniel Muller DO in OV> 06/19/25 1010 Medications / Prescriptions Medications or Prescriptions considered but not ordered:: None Medication administrations:: Medication Administration History Discontinued Medications Sodium Chloride (Ns) 1,000 mls @ 999 mls/hr IV .Q1H1M ONE Stop: 06/19/25 10:25 Last Infusion: 06/19/25 10:38 Dose: Infused Documented By: Admin: 06/19/25 09:37 Dose: 999 mls/hr Documented By: VERONICA See above Consultations Consultation(s) initiated? (list below): No Diagnosis Syncope Differential Diagnosis: syncope due to orthostatic hypotension, vasovagal syncope and dehydration Most likely diagnosis given after review of the tests above:: Vasovagal syncope Admission Indicated Admission indicated?: not indicated Explain why admission is indicated or not indicated:: With no condition needing emergent intervention, there was no indication for admission. Admission Request Was there a request for admission?: No Disposition Plan Disposition Plan: Discharge Discharge Attestation Discharge Attestation: The patient and all family members were given an opportunity to ask questions and understood the discharge instructions. Discharge instructions specifically effects, indications for sooner follow up or return to the emergency department, and the expected course of current diagnosis. Patient condition: Stable Discharge Plan Plan Patient Disposition: HOME (Self Care) Patient condition on transfer: Stable Prescriptions/Referrals Prescriptions/Med Rec: No Action valsartan 160 mg tablet 160 mg PO QDAY duloxetine [Cymbalta] 60 mg capsule,delayed release(DR/EC) 60 mg PO QDAY estradiol [Estrace] 0.01 % (0.1 mg/gram) cream 2 g vaginal DIRECTED Patient Comments: twice a week albuterol sulfate [Proventil HFA] 6.7 GM HFA aerosol inhaler 2 puff Inhalation Q6HR PRN (Reason: WHEEZING) Qty: 0 loratadine 10 mg tablet 10 mg PO DAILY PRN (Reason: allergy symptoms) Patient Comments: TAKE 1 TABLET BY MOUTH EVERY DAY NEEDED fluticasone propionate [24 Hour Allergy Relief] 50 mcg/actuation spray,suspension 1 spray intranasal QDAY PRN (Reason: allergy symptoms) Rx Instructions: administer into each nostril cranberry 500 mg capsule 500 mg PO QDAY Rx Instructions: administer with a meal potassium chloride 10 mEq capsule, extended release 20 meq PO DAILY Patient Comments: TAKE 2 CAPSULES BY MOUTH EVERY DAY azelastine 137 mcg (0.1 %) spray,non-aerosol 1 spray INTRANASAL BID Patient Comments: SPRAY TWICE IN EACH NOSTRIL TWICE DAILY clonidine HCl 0.1 mg tablet 0.1 mg PO HS Patient Comments: TAKE 1 TABLET BY MOUTH EVERY DAY AT NIGHT ascorbic acid (vitamin C) [C-1000] 1,000 mg tablet 1 g PO QDAY Ana-Pradeep 0.8 mg tablet 1 tab PO QDAY duloxetine 30 mg capsule,delayed release(DR/EC) 30 mg PO DAILY Referrals: Mary Mobley MD [Primary Care Provider, Family Practice] - In 1 week Problem List Clinical Impression: Vasovagal syncope Patient/Caregiver Discharge Instructions Discharge Activity: activity as tolerated Education Materials: What Is Syncope?, Causes of Syncope Additional Instructions: Off work 06/19 to 06/20/2025. Please see your physician in 1 to 2 days. Continue your usual medications and drink plenty of fluids. Print Language: [place] Stand Alone Forms: [employer] Award Info., Work/School Release, Patient Portal Info Letter
[2025-06-19 12:04] LABS: Bilirubin,Urine Negative (Negative); Blood,Urine Negative (Negative); Clarity,Urine Clear (Clear/Hazy); Color,Urine Lt-Yellow (Lt Yel-Yel); Glucose, Urine Negative (Negative); Ketones,Urine Negative (Negative); Leukocyte Esterase,Urine Negative (Negative); Nitrite,Urine Negative (Negative); PH,Urine 6.0 (5.0-7.0); Protein,Urine Negative (Neg - Trace); RBC,Urine < 1 /hpf (0-3); Specific Gravity,Urine 1.014 (1.001-1.035); Squamous Epithelial Cell,Urine < 1 /hpf (0-5); Urobilinogen,Urine Negative mg/dL (0.0-1.0); WBC,Urine 1 /hpf (0-5)
[2025-06-19 12:10] VITALS: BP 128/76; PULSE 66; RESP 15; TEMP 36.6; O2SAT 99
== END 2025-06-19 13:02 | disposition home or self-care (01) ==
PROVIDERS: Emergency Provider Family Medicine; PCP Family Medicine
DX: R55 Syncope and collapse (principal); I10 Essential (primary) hypertension
CPT/HCPCS: 36415; 71045; 80053; 81001; 84484; 85025; 85610; 85730; 93005; 96360; 99283; J7030

== ENCOUNTER → 2025-07-08 | Outpatient (CLI) | payer BC, SELFPAY ==
--- NOTE | 2025-07-08 16:08 | XR_ITS ---
Examination: Abdomen sonogram, complete Date and time of exam: July 08, 2025, 1619 hours INDICATIONS: Upper abdominal pain beginning 1 week ago. Technique: Multiple real-time grayscale transabdominal sonographic images of the abdomen have been obtained. Findings: Multiple gallstones Normal gallbladder wall Normal common bile duct 0.3 cm Pancreatic head 2.0 cm Aorta not enlarged Liver 15.7 cm fatty infiltration Normal hepatopetal portal venous flow Patent IVC Right kidney 8.6 cm renal cortex 0.8 cm Left kidney 10.3 cm renal cortex 1.3 cm Mild left hydronephrosis Spleen 11.1 cm IMPRESSION: Cholelithiasis, negative for cholecystitis Mild left hydronephrosis
== END | disposition home or self-care (01) ==
LOC: CDIM 15:55
PROVIDERS: PCP Family Medicine; Referring Provider Registered Nurse; Visit Provider Registered Nurse
DX: K80.20 Calculus of gallbladder without cholecystitis without obstruction (principal); N13.30 Unspecified hydronephrosis
CPT/HCPCS: 76700

== ENCOUNTER → 2025-07-09 | Outpatient (CLI) | payer BC, SELFPAY ==
[2025-07-09 15:38] LABS: Clostridium Difficile PCR Negative (Negative)
[2025-07-09 16:19] LABS: Campylobacter PCR Negative (Negative); Salmonella Species PCR Negative (Negative); Shiga Toxin PCR Negative (Negative); Shigella Species PCR Negative (Negative)
[2025-07-15 19:48] LABS: Source STOOL
== END | disposition home or self-care (01) ==
LOC: SLDO 09:35
PROVIDERS: Referring Provider Registered Nurse; Visit Provider Registered Nurse
DX: R19.7 Diarrhea, unspecified (principal)
CPT/HCPCS: 87177; 87209; 87493

== ENCOUNTER → 2025-07-30 | Outpatient (CLI) | payer BC, SELFPAY ==
--- NOTE | 2025-07-30 11:30 | XR_ITS ---
Examination: Screening digital mammography, bilateral Computer aided detection 3-D breast Tomosynthesis, bilateral Date and time of exam: July 30, 2025, 1122 hours, compared to mammograms dating to June 16, 2016 Indication: Screening Technique: Nonmagnified MLO, CC views of the breasts to been obtained, reconstructed from 3-D Tomosynthesis images. R2 computer aided detection program utilized for evaluation of suspicious masses and/or abnormal calcifications. 3-D Tomosynthesis images obtained. Findings: The breasts are heterogeneously dense, which may obscure small masses Grouped microcalcifications upper outer left breast No interval suspicious masses Impression: BI-RADS Category 0: Incomplete: Involutions evaluation Recommend follow-up spot magnification views of grouped microcalcifications upper outer left breast as well as bilateral breast sonography to complete the work-up
== END | disposition home or self-care (01) ==
LOC: CDIM 11:15
PROVIDERS: Referring Provider Obstetrics & Gynecology; Visit Provider Obstetrics & Gynecology
DX: Z12.31 Encounter for screening mammogram for malignant neoplasm of breast (principal); R92.8 Other abnormal and inconclusive findings on diagnostic imaging of breast; R92.0 Mammographic microcalcification found on diagnostic imaging of breast
CPT/HCPCS: 77063; 77067